=== PATIENT | female | born 1960 | race African-American/Black ===

== ENCOUNTER 2018-07-17 23:53 | Inpatient (IN) | payer OTHER ==
[~2018-07-17] VITALS: Ht 162.6 cm; Wt 81.6 kg
[2018-07-18] VITALS (15 sets, daily range): BP systolic 103–248; BP diastolic 60–140
[2018-07-18] MEDS ORDERED: NITROGLYCERIN0.4 MG SUBLING (00:33)
[2018-07-18] MEDS ORDERED: ASPIR 8181 MG PO (00:53)
[2018-07-18 00:54] LABS: ABSOLUTE NEUTROPHILS 9.2 thou/uL (1.4-8.2); BASOPHILS 0.7 % (0.0-2.0); EOSINOPHILS 0.6 % (0.0-3.0); HEMATOCRIT 44.6 % (37.0-47.0); HEMOGLOBIN 15.3 gm/dL (12.0-15.0); LYMPHOCYTES 12.5 % (24.0-44.0); MCH 31.1 pg (26.0-34.0); MCHC 34.3 g/dL (28.0-37.0); MCV 90.7 fL (80.0-100.0); MONOCYTES 5.1 % (1.0-8.0); PLATELET COUNT 276 thou/uL (150-400); POLYS 81.1 % (36.0-66.0); RBC 4.91 mil/uL (4.20-5.00); RDW 13.5 % (10.5-14.5); WBC 11.3 thou/uL (4.0-11.0)
[2018-07-18 01:02] LABS: ANION GAP 12 mmol/L (7-16); BUN 13 mg/dL (7-18); CALCIUM 9.7 mg/dL (8.5-10.1); CHLORIDE 100 mmol/L (98-107); CO2 26 mmol/L (21-32); GLUCOSE 101 mg/dL (74-106); POTASSIUM 3.4 mmol/L (3.5-5.1); SODIUM 138 mmol/L (136-145)
[2018-07-18 01:12] LABS: ALBUMIN 3.8 g/dL (3.4-5.0); SGOT 16 U/L (15-37); SGPT 20 U/L (30-65); TOTAL BILIRUBIN 0.7 mg/dL (<0.1-1.0); TOTAL PROTEIN 9.1 g/dL (6.4-8.2); TROPONIN-I <0.06 ng/mL (<0.06)
[2018-07-18] MEDS ORDERED: COREG6.25 MG PO (01:46)
[2018-07-18 05:05] LABS: URINE BILIRUBIN NEGATIVE (Negative); URINE BLOOD 1+ (Negative); URINE CLARITY CLEAR; URINE COLOR YELLOW; URINE GLUCOSE-RANDOM* NEGATIVE (Negative); URINE KETONES NEGATIVE (Negative); URINE LEUKOCYTES-REFLEX NEGATIVE (Negative); URINE NITRITE-REFLEX NEGATIVE (Negative); URINE PROTEIN (DIPSTICK) NEGATIVE (Negative); URINE SPECIFIC GRAVITY 1.015 (1.005-1.035); URINE UROBILINOGEN 0.2 E.U./dl (0.2-1.0)
[2018-07-18 05:14] LABS: AMP/METHAMP Negative (Negative); BARBITURATES Negative (Negative); BENZODIAZEPINES Negative (Negative); COCAINE POSITIVE (Negative); METHADONE Negative (Negative); OPIATES POSITIVE (Negative); PCP Negative (Negative)
--- NOTE | 2018-07-18 05:19 | NUR ---
PATIENT ADMIT FROM ER. ARRIVED ON UNIT ABOUT 0245 ALERT AND ORIENTED. C/O OF CHEST PAIN THAT IS MORE INTENSIVE WHEN COUGHING AND DEEP BREATHING. FROM ER WITH CARDENE DRIP. ELAVATED BP. SEE VITALS COLLUMN . PT SON STOP BY FOR A FEW SECONDS. PATIENT REPORTS NOT BEING ABLE TO TAKE CARE OF HER HEALTH DUE TO LACK OF INSURANCE AND ALSO DOES NOT WORK. SHE WOULD LIKE HER TO BE HELPED SO THAT SHE CAN ACCESS MEDICAL. CARDENE TITRATED TO 10.65MG/HR. NO SKIN ISSUES NOTED. PATIENT REPORTS USING RECREATIONAL MARIJUA AND DAILY SMOKER. PATIENT STILL GRIEVING THE LOSS OF HER SON 2002. PT REPORTS TO TO HAVE CONTEPLATED SUICIDE BEFORE. NO OTHER CONCERNS CURRENTLY. WILL CONTINUE TO FOLLOW POC.
[2018-07-18 05:24] LABS: BACTERIA-REFLEX None Seen /HPF (None Seen); CASTS None Seen /LPF (None Seen); CRYSTALS None Seen /LPF (None Seen); MUCUS None Seen strn/LPF (None Seen); SQUAMOUS None Seen /LPF (0-3); URINE RBC 0-2 Rare /HPF (0-2); URINE WBC-REFLEX None Seen /HPF (0-5)
[2018-07-18 06:33] LABS: CHOLESTEROL 195 mg/dL (<200); HDL CHOLESTEROL 68 mg/dL (>40); LDL CHOLESTEROL 113 mg/dL (<100); TC:HDL 2.9 Ratio (Not establshd); TRIGLYCERIDE 70 mg/dL (<150); VLDL 14 mg/dL (<40)
[2018-07-18 06:34] LABS: SERUM ASSESSMENT Clear
--- NOTE | 2018-07-18 07:09 | EKG ---
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 : 1960 Requested By: Corina Alatorre Order Number: [id number] MD: James Lindo Measurements Intervals [place] Rate: 101 P: 64 VA: 146 QRS: -1 QRSD: 87 T: 27 QT: 424 QTc: 550 Interpretive Statements Sinus tachycardia Probable left atrial enlargement Left ventricular hypertrophy Anterior infarct, old No previous ECG available for comparison Electronically Signed On 07-18-2018 7:09:38 CDT by James Lindo [email or web address] ��������������������������������������������� <ELECTRONICALLY SIGNED> ���������������������������������������� By: James Lindo MD ��������������������������������������������� 07/18/1809 0005 0005 James Lindo MD /JARAD
--- NOTE | 2018-07-18 07:09 | EKG ---
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1960 Requested By: Corina Alatorre Order Number: [id number] MD: James Lindo Measurements Intervals [place] Rate: 111 P: 53 MN: 143 QRS: 3 QRSD: 85 T: -53 QT: 327 QTc: 445 Interpretive Statements Sinus tachycardia Left ventricular hypertrophy Anterior infarct, old Borderline T abnormalities, inferior leads No previous ECG available for comparison Electronically Signed On 07-18-2018 7:09:44 CDT by James Lindo [email or web address] ��������������������������������������������� <ELECTRONICALLY SIGNED> ���������������������������������������� By: James Lindo MD ��������������������������������������������� 07/18/18 0709 0041 004 James Lindo MD /JARAD
--- NOTE | 2018-07-18 15:12 | 2DMMODE ---
[facility] [address] [place] [address] 2 D/M-MODE ECHOCARDIOGRAM Name: ESSIE GARZA Room #: 211-P ADM IN .R.#: [id number] ������������� Admission: 07/18/18 ������������� Attend Phys: Osvaldo Baez, Discharge: ��� ������������� ��� Date of : 64 Date of Service: 07/18/18 1512 �� Report #: [id number] �������� ��������������������������������������������[id number] THIS REPORT FOR: //name// APPROVED REPORT Study performed: 07/18/2018 14:02:45 EXAM: Comprehensive 2D, Doppler, and color-flow Echocardiogram Patient Location: Bedside Room #: 211 Status: routine BSA: 1.87 HR: 93 bpm BP: 154/103 mmHg Rhythm: NSR Other Information Study Quality: Adequate Indications Dyspnea Chest Pain Hypertension/HDD 2D Dimensions IVSd: 11.60 (7-11mm) LVOT Diam: 17.70 (18-24mm) LVDd: 42.48 mm PWd: 11.71 (7-11mm) Ascending Ao: 29.30 (22-36mm) LVDs: 28.60 (25-40mm) Aortic Root: 30.76 mm IVC: 10.00 mm Volumes Left Atrial Volume (Systole) Single Plane 4CH: 30.58 mL Single Plane 2CH: 29.09 mL LA ESV Index: 17.00 mL/m2 Aortic Valve AoV Peak Eusebio.: 1.58 m/s AO Peak Gr.: 9.95 mmHg LVOT Max P.54 mmHg LVOT Max V: 1.07 m/s JULITA Vmax: 1.66 cm2 Mitral Valve E/A Ratio: 0.7 MV Decel. Time: 288.84 ms [facility] [address] [place] [address] 2 D/M-MODE ECHOCARDIOGRAM Name: ESSIE GARZA Room #: 211-P [facility]#: [id number] ������������� Admission: 07/18/18 ������������� Attend Phys: Osvaldo Baez, Discharge: ��� ������������� ��� Date of : 64 Date of Service: 07/18/18 1512 �� Report #: [id number] �������� ��������������������������������������������[id number] MV E Max Eusebio.: 0.85 m/s MV A Eusebio.: 1.23 m/s MV PHT: 83.76 ms IVRT: 106.11 ms Pulmonary Valve PV Peak Eusebio.: 1.26 m/s PV Peak Gr.: 6.34 mmHg Pulmonary Vein P Vein S: 0.29 m/s P Vein A: 0.24 m/s P Vein D: 0.24 m/s P Vein A Dur.: 92.3 msec P Vein S/D Ratio: 1.21 Left Ventricle The left ventricle is normal size. There is normal LV segmental wall motion. Mild concentric left ventricular hypertrophy. The left ventricular systolic function is normal. The left ventricular ejection fraction is within the normal range. LVEF is 55-60%. Grade I - abnormal relaxation pattern. Right Ventricle The right ventricle is normal size. The right ventricular systolic function is normal. Atria The left atrium size is normal. The right atrium size is normal. Aortic Valve The aortic valve is normal in structure. No aortic regurgitation is present. There is no aortic valvular stenosis. Mitral Valve The mitral valve is normal in structure. There is no mitral valve regurgitation noted. No evidence of mitral valve stenosis. Tricuspid Valve The tricuspid valve is normal in structure. There is no tricuspid valve regurgitation noted. Pulmonic Valve The pulmonary valve is normal in structure. There is no pulmonic valvular regurgitation. Great Vessels The aortic root is normal in size. IVC is normal in size and [facility] [address] [place] [address] 2 D/M-MODE ECHOCARDIOGRAM Name: ESSIE GARZA Room #: 211-P [facility] M.R.#: [id number] ������������� Admission: 07/18/18 ������������� Attend Phys: Osvaldo Baez, Discharge: ��� ������������� ��� Date of : 64 Date of Service: 07/18/18 1512 �� Report #: [id number] �������� ��������������������������������������������[id number] collapses >50% with inspiration. Pericardium There is no pericardial effusion. <Conclusion> The left ventricle is normal size. Mild concentric left ventricular hypertrophy. LVEF is 55-60%. The aortic valve is normal in structure. The mitral valve is normal in structure. The tricuspid valve is normal in structure. The pulmonary valve is normal in structure. There is no pericardial effusion. ��������������������������������������������� <ELECTRONICALLY SIGNED> ���������������������������������������� By: Michael Amaro MD ��������������������������������������������� 07/18/18 151 11 11 Michael Amaro MD /INF
--- NOTE | 2018-07-18 15:32 | NUR ---
ASSUMED CARE AT 0700. PT HAS REMAINED CHEST PAIN FREE THIS SHIFT. PT IS ON NICARDIPINE GTT. AT BEGINNING OF SHIFT NICARDIPINE GTT WAS TITRATED TO 13.15MG/HR, 60.49MLS/HR TO KEEP SYSTOLIC B/P < THAN 150.
--- NOTE | 2018-07-18 16:20 | NUR ---
Case opened to follow for dc planning needs. Ict Educator visited with the pt at bedside today. She was a&ox4 and able to complete cm assessment. She does not work and does not have health insurance. She lives with her Auntie and adult dtr. She did have medicaid a couple of years ago and has utilized [facility] in the past. [employer] net packet provided and reveiwed with the pt including crisis hotlines, clinics, script assist, and mental health providers. She relies on her Auntie for transportation. She reports being on an antidepressant and blood pressure meds in the past but stopped taking them due to lack of resources. She denies SI at this time. She is receptive to mental health resources. She reports ongoing struggle with grief and loss of her son who was murdered. Pt did acknowledge cocaine use as well as thc. The pt was encouraged to make a f/u appt at [place] or [facility]. CM to voucher medications for one month supply. If dc'd over the weekend, the pt believes family can take her to [facility]. The pt stated understanding of need to have f/u care, take her medications and pursue counseling. [facility] referral initiated. Psych eval pending. Pt on a cardene gtt for elev blood pressure. Pt is indep with gait and adl's. Will follow.
[2018-07-19 00:25] VITALS: BP 135/78
[2018-07-19 01:16] VITALS: BP 134/74
--- NOTE | 2018-07-19 03:33 | NUR ---
RECEIVED PT'S CARE AT 1910; PT. SLEEPING; RELATIVES AT THE BED SIDE; NO C/O PAIN; DURING ASSESSMENT PT. AOX4; NO C/O PAIN; SBP 103; CARDENE TITRATE PER CHART; EARLY ON THE NIGHT PT' SBP BETWEEN THE 130'S-140'S; MEDICATION TITRATE PER CHART; AT 2230 MEDICATION STOPPED; NETWORK FIELD ENGINEER NOTIFIED; THROUGH THE NIGHT SBP ON THE 130'S-140'S; PT. ABLE TO REST; NO C/O PAIN; NO ANXIETY MEDICATION REQUESTED; ASSESSMENT CHARGED; FOLLOWING POC; WILL CONTINUE TO MONITOR; WILL PASS ON REPORT.
[2018-07-19 05:04] VITALS: BP 140/86
[2018-07-19 07:33] VITALS: BP 160/114
[2018-07-19 08:11] VITALS: BP 160/114
[2018-07-19] MEDS ORDERED: VISTARIL 25 MG25 M1 PO (11:13)
[2018-07-19] MEDS ORDERED: LISINOPRIL10 MG PO (11:13)
[2018-07-19] MEDS ORDERED: REMERON15 MG PO (11:13)
[2018-07-19] MEDS ORDERED: ACETAMINOPHEN325 M1 PO (11:13)
--- NOTE | 2018-07-19 13:13 | NUR ---
AAAOX4 PLEASANT AND COOPERTIVE. FAMILY KJ IN FRIED CHICKEN FOR LUNCH. DENIES PAIN. SALINE LOCK DISCONTINUED. UP IN ROOM WITH STEADY GAIT. REMIANS IN SINUS RHYTHM. DISHCARGED TO HOME ACCOMPANIED BY FAMILY.
== END 2018-07-19 12:55 | disposition home or self-care (01) | DRG 305 ==
LOC: ER 23:53 → EROBS 07-18 01:34 → 2N 07-18 01:34
PROVIDERS: Nurse Practitioner Acute Care; Student in an Organized Health Care Education/Training Program; ADMIT Internal Medicine
DX: I16.1 Hypertensive emergency (principal); R45.851 Suicidal ideations; I10 Essential (primary) hypertension; E78.5 Hyperlipidemia, unspecified; I25.10 Atherosclerotic heart disease of native coronary artery without angina pectoris; E87.6 Hypokalemia; F32.9 Major depressive disorder, single episode, unspecified; F43.10 Post-traumatic stress disorder, unspecified; F17.210 Nicotine dependence, cigarettes, uncomplicated; F11.10 Opioid abuse, uncomplicated; F41.9 Anxiety disorder, unspecified; F12.10 Cannabis abuse, uncomplicated; F14.10 Cocaine abuse, uncomplicated; Z71.6 Tobacco abuse counseling; Z90.710 Acquired absence of both cervix and uterus; Z95.5 Presence of coronary angioplasty implant and graft; Z79.82 Long term (current) use of aspirin; Z79.899 Other long term (current) drug therapy; Z91.14 Patient's other noncompliance with medication regimen; Z82.49 Family history of ischemic heart disease and other diseases of the circulatory system; Z83.79 Family history of other diseases of the digestive system
CPT/HCPCS: 10081